=== PATIENT | male | born 1940 | race African-American/Black ===

== ENCOUNTER 2024-04-25 15:03 | Inpatient (IN) | payer MEDICARE, SELFPAY ==
[2024-04-25] VITALS (10 sets, daily range): BP systolic 121–151; BP diastolic 71–100; PULSE 77–95; BMI 19.7; BMI 18.7
[2024-04-25 10:27] LABS: Glucose - Point of Care 145 mg/dl (70-99)
--- NOTE | 2024-04-25 10:35 | CON.NEURO ---
Neuro Assessment/Plan
Assessment
IMPRESSIONS/RECOMMENDATIONS:
Abrupt change in speech with reduced speech following what was described by the patient's family as suggested respiratory change
Differential diagnosis includes seizure, anoxic encephalopathy
Plan
Patient will require further evaluation by means of EEG
Patient will require further evaluation by means of MRI of brain.
Unclear if the patient will require initiation of antiseizure medication this time, symptomatology may be secondary to non-[employer] related causes
Check blood work for potential metabolic causes
Will continue to follow patient.
Consultation
Order
Date of Consultation: 04/25/24
Requesting Provider: ED Physician
Reason for Consult: Change in mental status
Subjective/Objective
Subjective Data
Date of Service: April 25, 2024
Patient himself is unable to provide his own medical history.
Patient reportedly was in his usual state of health until becoming responsive at home after eating breakfast. The patient was described as having irregular respirations and the patient's attempted to revive him by performing CPR. Paramedics,
upon arrival, found the patient to be awake but confused and combative.
Because of the patient becoming less responsive at times although he was combative upon presentation, a stroke alert was initiated. The patient is not known to have additional associated symptoms. There is no known modifying factors at this time.
The patient did not experience either tongue biting or known bowel or bladder incontinence at the time of the incident. Unknown if the patient has had prior episodes which were similar.
Objective Data
Vital Signs
Temp Pulse Resp BP
36.5 C 98 16 151/94
04/25/24 10:26 04/25/24 10:19 04/25/24 10:19 04/25/24 10:19
Patient Allergies
No Known Drug Allergies Allergy (Verified 02/17/14 07:52)
Unknown
CVA Assessment
Onset of Stroke Symptoms
Onset of symptoms known: Yes
Date of onset of symptoms: 04/25/24
Time of onset of symptoms: 09:30
Time pt last seen normal is known: Yes
Date last time pt seen normal: 04/25/24
Time last time pt seen normal: 09:30
NIH Stroke Score
Level of Consciousness: 1 - Arousable
LOC Questions: 0-Answers both correctly
LOC Commands: 1-Performs one correctly
Best Horizontal Gaze: 0-Normal
Visual Linda: 0=Normal, no visual loss
Facial Palsy: 0=Normal, symmetrical
Motor - Right Arm: 0=No drift 10 seconds
Motor - Left Arm: 0=No drift 10 seconds
Motor - Right Le-No drift 5 seconds
Motor - Left Le-No drift 5 seconds
Limb Ataxia: 0-Absent
Sensation: 0-Normal
Best Language: 0-No aphasia
Dysarthria: 0-Normal
Extinction and Inattention: 0-No abnormality
Total Score:: 2
Tenecteplase Contraindications
Inclusion and Exclusion criteria reviewed: Yes
IAT Contraindications: NIHSS < 6
Review of Systems
-
Unable to obtain full review of systems at this time due to: Lethargy
History Source: Patient
All other systems: Reviewed and negative
Neuro: Headache (Central pressure); Negative Dizzy
Physical Exam
-
General: No Apparent Distress and Appears Stated Age
Eyes: OU Absent Papilledema, Round OU, [place] Conjunctivae and No Ptosis
HEENT: Anicteric and Moist Mucous Membranes
Neck: Full Range of Motion
Respiratory: No Dyspnea
Cardiac: No JVD
GI: Non-distended
Skin: Unremarkable
Extremities: No Clubbing, No Cyanosis and No Edema
Psych: Negative Intact Judgement/Insight
Extended Neurological Exam
Mood & Affect: Mood Unremarkable and Affect Unremarkable
Attention Span & Concentration: Awake, Interactive and Moderate Difficulty with 2 Step Request; Negative Alert
Memory: Unremarkable
Tremor: Hand Tremor Absent and Head Tremor Absent
Involuntary Movement: None
Speech: Quality Unremarkable and Quantity Unremarkable
Cranial Nerve II: Left Eye: Pupillary Reactivity Unremarkable, Pupillary Size Unremarkable and Visual Linda Intact
Cranial Nerve II: Right Eye: Pupillary Reactivity Unremarkable, Pupillary Size Unremarkable and Visual Linda Intact
Cranial Nerves III, IV, : Extraocular Movement: Extraocular Movement Full in all Directions
Cranial Nerve VII: Facial Symmetry: Normal Facial Symmetry
Cranial Nerve VIII: Hearing: Unremarkable Hearing to Normal Conversational Volume
Cranial Nerves IX, X: Palate Movement: Palate Elevation Symmetric
Cranial Nerve XI: Shoulder Shrug: Unremarkable
Cranial Nerve XII: Tongue Protusion: Midline
Muscle Strength, Overall: Full Throughout
Muscle Bulk & Tone: Bulk Unremarkable and Tone Unremarkable
Pronator Drift: No Drift in Upper Extremities and No Drift in Lower Extremities
Deep Tendon Reflexes: Unremarkable Throughout
Touch Sensation: Unremarkable
Coordination: Isejhd-taub-gguloh Testing Unremarkable
Babinski Sign: Absent Bilaterally
Data Reviewed
-
CT Head: Report Reviewed and Image Reviewed
Labs: Report Reviewed
Reviewed with: Physician, Nurse and Patient
Old Records: Summarized
Medications
-
Home Medications
�Medication �Instructions �Recorded
ferrous sulfate 325 mg (65 mg 325 mg PO BID #0 tabs 12/29/13
iron) tablet (FeroSul)
ciprofloxacin HCl 500 mg tablet 500 mg PO BID 02/16/14
Thera-M DAILY 02/17/14
Past History
Past History
ED Past Medical History: Other (Urinary incontinence); Negative Renal failure (CKD3)
ED Past Surgical History: None
Social History
Tobacco: Former smoker
Alcohol: Occasional
Drug: None
Personal:
Living: with family
Employment: Employed
Family History
Family History: Other (reviewed and non-contributory)
--- NOTE | 2024-04-25 10:44 | ED.GENMED ---
History of Present Illness
General
Chief Complaint: Fainting/Passed Out
Source: patient and ambulance crew
Time Seen by Provider: 04/25/24 10:42
Travel History
Have you had any contact with someone who has COVID-19?: No
Do you have any symptoms of coronavirus? Fever > 100 degrees, chills, cough, shortness of breath, sore throat, loss of taste or smell, muscle aches, or headache?: No
History of Present Illness
History of Present Illness:
83-year-old gentleman brought to the emergency room by medics after he became unresponsive at home. Medics report the patient was eating breakfast with his when he became unresponsive. She described his respirations as being abnormal. She
evidently performed CPR. When the paramedics arrived they found him to be awake but confused and somewhat combative. Evidently the patient does not take any medications. Patient arrives somewhat confused but answering some questions.
Past History
Past History
ED Past Medical History: Other (Urinary incontinence); Negative Renal failure (CKD3)
Social History
Tobacco: Former smoker
Alcohol: Occasional
Drug: None
Personal:
Living: with family
Employment: Employed
Phy Exam
Physical Exam
Physical Exam:
General: Awake, Alert, Oriented X1. No acute distress.
Vitals: unremarkable
Head: Atraumatic
Eyes: Pupils equal, EOMI
Throat: Airway intact, no exudates, dry mucosa
Neck: Trachea midline
Lungs: Clear and equal b/l
Heart: Regular rate, no murmurs
Abd: Soft, Nontender, No pulsatile mass
Neuro: Confused but cranial nerves seem intact bilaterally, muscle strength equal bilaterally no apparent visual field deficits.
Skin: Warm, dry, no rash
Extremities: pulses equal b/l, no edema
Course
Orders/Labs/Results
Orders:
Orders
04/25/24 10:23
Lorazepam [Ativan] 2 mg .ROUTE .STK-MED ONE
04/25/24 10:33
CT Head W/o Cont STROKE ALERT Stat
Comment:
Reason For Exam: stroke
04/25/24 10:44
Electrocardiogram (*1) Urgent
Reason for Study: Syncope
EKG- Treatment ONCE
04/25/24 10:45
Complete Blood Count/With Diff Urgent
Erythrocyte Sed Rate Urgent
Comment: ADD ON
04/25/24 12:11
C-Reactive Protein Urgent
Comment: ADD ON
Comprehensive Metabolic Panel Urgent
Ferritin Urgent
Comment: ADD ON
Folate Urgent
Comment: ADD ON
Magnesium Urgent
TSH Reflex To Free T4 Urgent
Troponin I Urgent
Vitamin B12 Urgent
Comment: ADD ON
04/25/24 13:55
Add On- LAB Routine
Comments:: Please add to today's labs or draw as routine
Tests Added?: TSH reflex, Ferritin, Folate, Vit. B12, ESR, CRP
04/25/24 14:43
Admit/Transfer Patient As Directed
Co-Sign Provider:
Level of Care: Inpatient admission
Assign to:: Telemetry
Physician / Group: Hospitalist
Diagnosis: Syncope
Reason for Telemetry: Syncope
Date to Stop Telemetry: 04/27/24
Time to Stop Telemetry: 11:00
Reason for Hospitalization: unexplained syncope
Expected length of stay greater than two midnights?: Yes
ELOS- Estimated Length of Stay in days: 2
I certify the patient meets the requirements for IP care: Yes
04/25/24 14:45
Code Status As Directed
Resuscitation Status: Full Code
04/27/24 11:00
DC Protocol for Telemetry ONCE
Abnormal Lab Results
04/25/24 04/25/24 04/25/24
10: 10:45 12:11
RBC 4.10 L 10^6/uL
(4.70-6.10)
Hgb 11.9 L g/dL
(13.0-18.0)
Hct 35.8 L %
(39.0-52.0)
Absolute Lymphs (auto) 1.0 L 10^3/uL
(1.2-3.4)
Neutrophils % 77.9 H %
(42.2-75.2)
Lymphocytes % 17.2 L %
(20.5-51.1)
BUN 27 H mg/dl
(9-20)
POC Glucose 145 H mg/dl
(70-99)
04/25/24 10:45
04/25/24 12:11
Vital Signs
Initial and Last Documented VS:
Initial Vital Signs
Pulse Resp BP
98 16 151/94
04/25/24 10:19 04/25/24 10:19 04/25/24 10:19
Last Documented Vital Signs
Temp Pulse Resp BP Pulse Ox
97.7 F 90 19 149/81 97
04/25/24 10:26 04/25/24 14:30 04/25/24 14:30 04/25/24 14:00 04/25/24 10:59
MDM/Problems Addressed
Differential Diagnosis Includes:
Seizure, syncope, dysrhythmia
MDM/Problems Addressed:
Patient presents after having become unresponsive at home. This was witnessed by his . She evidently started CPR. When x-ray of the found to be combative. Upon arrival here to the emergency room he is confused. Workup started as a stroke
alert. CT shows no acute abnormality. During his stay in the emergency patient has become more calm and seems to be close to baseline. Neurology evaluation performed and they feel this event is very unlikely to have been an ischemic event. Labs
show mild elevated BUN but otherwise really they are unremarkable. No dysrhythmia on the monitor here. Ultimately was able to speak to the patient's and she states that when he collapsed he was stiff with his arms flexed for a period of time.
He did not have rhythmic shaking however. Overall it is difficult to determine if this was a true seizure versus cardiac syncope. Patient will require hospitalization to sort this out
*Radiology
Radiology exam reviewed: radiology read reviewed
*Pulse Oximetry
Patient hypoxic: no
*EKG
Interpreted by ED Provider?: Yes
Interpretation: normal
Heart Rate: 92
Rate: normal
Rhythm: sinus
Interval: normal interval
QRS Pattern: normal QRS
Ischemia: no ischemia
*Change Release Manager Interpretation
Rate: normal
Interpretation: normal
Rhythm: sinus
*Critical Care Note
Total Time (30-74mins, 75-104mins- exclusive of procedures): 35 min
comment:
Critical care statement: A total of 35 minutes of critical care time was provided for this patient. This includes management of unstable vital signs, evaluation of the patient at bedside, reviewing the patient's pertinent medical records, discussion
with consultants, review of old EKGs and review of pertinent medical records. This time with separate from time utilized to perform the aforementioned documented procedures
Patient Management
Social determinants of health affecting care: Living situation
ED Attending Note
-
Portions of this chart may have been created with voice recognition software.� Occasional wrong word or��sound alike� substitutions may have occurred due to the inherent limitations of voice recognition software.
Discharge Plan
Departure
Patient Disposition: Admit
Date of Disposition: 04/25/24
Time of Disposition: 13:24
Presentation/result/management discussed w/ accepting MD/DO: Hospitalist
Condition: Fair
Discharge Problem:
Syncope, Altered mental status
Prescriptions:
No Action
No Current Medications
0
Referrals:
UNKNOWN - PT NOT,INTERVIEWE [Family Provider] -
Interventions
Interventions:
*Risk Screen - Suicide Last Done: 04/25/24 10:19
*General Assessment Last Done: 04/25/24 10:19
*Neglect/Abuse Screening Last Done: 04/25/24 10:19
ED- Cardiac Assessment Last Done: 04/25/24 10:59
ED- Neurological Assessment Last Done: 04/25/24 10:59
Discharge Date and Time
Print Language: IRISH
[2024-04-25 10:56] LABS: % Basophils 0.4 % (0-2); % Eosinophils 1.1 % (0-6); % Immature Granulocytes 0.2 % (0-0.5); % Lymphocytes 17.2 % (20.5-51.1); % Monocytes 3.2 % (1.7-9.3); % Neutrophils 77.9 % (42.2-75.2); Absolute Eosinophils 0.1 10^3/uL (0-0.7); Absolute Monocytes 0.2 10^3/uL (0.1-0.6); Absolute Neutrophils 4.4 10^3/uL (1.4-6.5); Hematocrit 35.8 % (39.0-52.0); Hemoglobin 11.9 g/dL (13.0-18.0); Mean Corp Hgb Conc. 33.2 g/dL (33.0-37.0); Mean Corpuscular Volume 87.3 fL (80.0-94.0); Mean Platelet Volume 10.3 fL (7.4-10.4); Nucleated Red Blood Cells % 0 % (-); Platelet Count 148 10^3/uL (130-400); Red Cell Dist. Width 14.2 % (11.5-14.5); White Blood Cell Count 5.6 10^3/uL (4.8-10.8)
[2024-04-25 12:41] LABS: ALT (SGPT) 14 U/L (0-50); AST (SGOT) 23 U/L (17-59); Albumin 3.6 g/dl (3.5-5.0); Alkaline Phosphatase 74 U/L (38-126); Blood Urea Nitrogen 27 mg/dl (9-20); Calcium 9.1 mg/dl (8.4-10.2); Carbon Dioxide 27 mmol/L (22-30); Chloride 104 mmol/L (98-107); Estimated Creatinine Clearance 48 ml/min; Glucose 77 mg/dl (70-99); Potassium 4.1 mmol/L (3.5-5.1); Sodium 136 mmol/L (135-145); Total Bilirubin 0.5 mg/dl (0.2-1.3); Total Protein 7.2 g/dl (6.3-8.2); eGFR > 60.00
[2024-04-25 12:52] LABS: Troponin I < 0.012 ng/ml
[2024-04-25 13:17] LABS: TSH Reflex To Free T4 1.85 uIU/ml (0.47-4.68)
--- NOTE | 2024-04-25 14:23 | HPS.HSE ---
Addendum entered and electronically signed by Diego Sanchez MD 04/26/24 14:16:
I saw and evaluated the patient I reviewed the note by Gladis and agree to find the following comments:
83-year-old male with no chronic medical history presented to hospital after spell of abnormal behavior with loss of consciousness seen by his . Patient can recall an unusual sensation in the chest and abdomen and then waking up being
surrounded by medical personnel, he did not have any discomfort dyspnea or chest pain with this. His describes a yelling sound and then seeing him seeming to fall to the ground but also trying to catch himself seem to have a flexion type
movement of the arms and wrists that lasted a minute or 2, he did not have tongue bite or loss of urinary function, afterwards he did seem to be confused but was able to talk and that is what was going on.
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
past, no history of any brain injury or stroke or neurologic problems to his knowledge.
Patient given lorazepam in the ER due to agitation.
Some paroxysmal SVT has been seen here on telemetry.
Echocardiogram with no significant abnormality
EEG is normal
Brain MRI no significant abnormalities there is moderate white matter vascular ischemic disease no acute infarct or masses
Assessment: Loss of consciousness episode, not clear to me that this was seizure but it is possible. Could also represent a syncope with some degree of convulsive activity afterwards which is common. Patient does not have any history or findings
on testing that support high likelihood of future seizure events. He understands that if a second similar event were to occur then this would point towards epilepsy which would necessitate chronic antiseizure medication.
Recommendations
-Would need follow-up in the outpatient neurology setting and possibly repeat EEG's later on
-Continue monitoring on cardiac telemetry
-Encourage daily blood pressure checks in the morning
-Patient does not want to pursue any antiseizure medication at this time which I feel is reasonable given his testing has not supported epilepsy at this time, if further similar events occur then need to readdress antiseizure medication
-At this time not going to recommend restriction from driving given testing has not supported epilepsy and description of the event is equivocal between seizure and syncope
Original Note:
Family Physician
-
Family Physician: INTERVIEWE UNKNOWN - PT NOT
Chief Complaint
-
Syncopal episode
History of Present Illness
This an 83-year-old male with denies any significant past medical history presenting to the emergency department via EMS after a syncopal episode at home.
Patient was apparently found collapsed at home. . She started CPR. Medics arrived and patient was found awake confused and combative. When able to provide some history. He reports being in usual state of health up until yesterday. He
stated been noted to affect him as he noted decrease in energy level over the last months. Today in the right getting up in usual state of health. He did not remember hearing voices and seeing people around him but not able to process what was
going on. The next any was an ambulance and was being taken to the hospital. Prior to this episode patient denied feeling dizzy or lightheaded. He denied any palpitations. He reports mild shortness chest pain the last seconds and improves with
deep inspiration. Patient denies any recent episodes of melena or hematochezia. He denies any diarrhea. He denies any significant changes in p.o. intake. He denies starting any new medications. He denies any prior CAD. He states that he
usually exercises regularly but the last time he had significant excess activity was about 4 months ago. He denies orthopnea or PND. He denies any cough fevers or chills. He denies alcohol. He denies any drug use. He is only tablets cod liver
oil and vitamin D.
On arrival in the emergency department the patient was afebrile, hemodynamically stable to pressure of 150/90, pulse of 98 and oxygen saturation 97% on room air. ECG showed normal sinus rhythm without any acute ST or T wave changes. QTc was within
normal range. Head CT shows no acute intracranial process. His CBC was clearly normal. Chemistries were also normal. Troponin was in normal range at 0.012. LFTs were normal. TSH was normal. UA is pending
Medical History
Past Medical History
Past Medical History: Reports None
Past Surgical History: Reports None
Social History
Tobacco: Former Smoker
Alcohol: Occasional
Drug: None
Personal:
Living: With Family
Employment: Retired
Family History
Family History: Not pertinent
Allergies / Home Medications
Allergies reflects when Allergies were last updated in [facility].
Home Medications with original date entered in [facility]
Allergy/Medication List:
Allergies
Allergy/AdvReac Type Severity Reaction Status Date / Time
No Known Drug Allergies Allergy Unknown Verified 02/17/14 07:52
Home Medications
No Meds [No Current Medications] 04/25/24
Review of Systems
-
History Source: Patient
Constitutional: Reports No Symptoms
EENT: Reports No Symptoms
Respiratory: Reports No Symptoms
Cardiac: Reports No Symptoms
Abdomen/GI: Reports No Symptoms
: Reports No Symptoms
Musculoskeletal: Reports No Symptoms
Skin: Reports No Symptoms
Neurological: Reports No Symptoms
Endocrine: Reports No Symptoms
Hematologic/Lymphatic: Reports No Symptoms
Psych: Reports No Symptoms
Physical Exam
Vital Signs
Vital Signs
Temp Pulse Resp BP Pulse Ox
97.7 F 98 16 151/94 97
04/25/24 10:26 04/25/24 10:19 04/25/24 10:19 04/25/24 10:19 04/25/24 10:59
Physical Exam
General: No Apparent Distress
HEENT: NormoCephalic, Anicteric, Moist mucous membranes and PERRLA
Respiratory: Clear
Cardiac: S1/S2 and Regular Rhythm
Breast: Deferred by me
GI: Soft, Non Tender, Non Distended and Normal Bowel Sounds
Rectal: Deferred by Provider
Genito-urinary: Deferred by me
Musculoskeletal: No Clubbing, No Cyanosis, Edema, Left Lower Extremity (trace ) and Edema, Right Lower Extremity (trace)
Skin: Warm
Neuro: AO x 3, No Motor Deficits, Nonfocal/grossly intact, Cranial Nerves Intact and No Sensory Deficits
Hematologic/Lymphatic: No Lymphadenopathy
Psych: Calm
Laboratory Results
-
04/25/24 10:45
04/25/24 12:11
Laboratory Results
Total Bilirubin 0.5 mg/dl (0.2-1.3) 04/25/24 12:11
AST 23 U/L (17-59) 04/25/24 12:11
ALT 14 U/L (0-50) 04/25/24 12:11
Alkaline Phosphatase 74 U/L (38-126) 04/25/24 12:11
Troponin I < 0.012 ng/ml 04/25/24 12:11
Data Reviewed
-
CT Scan: Report Reviewed by me
Medical Tests (Nuc Med, Echo, EKG etc): Image Personally Visualized and interpreted
Lab Data: Labs Reviewed by me
Old Records: Reviewed
Impression/Plan
-
IMPRESSION:
83 y.o with syncopal episode of uncertain etiology. Per family there was a sudden collapse without evidence of antecedent seizures. He arose combative but no loss of continence, tongue biting or post-ictal depression. He is currently at baseline,
A&Ox3, purposeful and has incite. Reports decreasing energy that he misattributes to presence of grandson but could reflect underlying cardiac anomaly. Current w/u is so far remarkably negative wuit normal cbc, chem, trop, ecg, lft, & CT head.
Probably was unresponsive but unlikely there was a cardiac arrest.
PLAN:
1. Syncopal episode - Unclear but cardiac, vs vasovagal vs stroke or seizure. Will admit to rule out cardiac etiology
- admit to telemetry and monitor x 24 hours for abnormal rhythm
- cycle cardiac enzymes q 6 x 3
- echo in am
- orthostatic vs
- check u/a, b12, rpr
- check d-dimer.
2. Neuro - Possibly seizure but unclear evidence for. NIHSS = [address]
- mri brain
- eeg per neurology consult
- neurochecks q 6 hours for now
- lipid panel and a1c.
DVT PPX - lovenox sq
Full Code
[2024-04-25 14:51] LABS: C-Reactive Protein < 5.00 mg/L (0.0-10.00)
[2024-04-25 14:54] LABS: Erythrocyte Sed Rate 18 mm/hour (0-20)
[2024-04-25 16:05] LABS: Folate 16.9 ng/ml (2.76-20)
[2024-04-25 16:44] LABS: Vitamin B12 494 pg/ml (239-931)
--- NOTE | 2024-04-25 17:16 | PTCARENOTE ---
Received pt from ER via stretcher, accompanied by ER staff. Pt AAO x3, JENNINGS well; transferred to bed with assist x1- sl unsteady w/ OOB activity, denies weakness/dizziness. NIHSS 0. Pt with very poor vision. Fall prec initiated. Placed on
telemetry:NSR with PVC's. On room air- pulseox 100%, no SOB noted. Abd soft,sl rounded, non-tender, to start reg diet. Pt DTV; urinal at bedside., Pt aware of need for urine sample. Afebrile, warm and dry; dry/flaking skin on lower legs.
Resting in bed at present, no c/o. Will continue to monitor.
[2024-04-25 17:39] LABS: Troponin I 0.018 ng/ml
[2024-04-25 20:26] LABS: Urine Albumin Negative (Neg - Trace); Urine Bilirubin Negative (Negative); Urine Character Clear (Clear); Urine Color Yellow; Urine Glucose Negative (Negative); Urine Ketone 1+ (Negative); Urine Leukocyte Negative (Negative); Urine Nitrite Negative (Negative); Urine Occult Blood Negative (Negative); Urine Urobilinogen Negative (Neg - 1+)
[2024-04-26 03:02] VITALS: BP 132/78
[2024-04-26 06:31] LABS: Hematocrit 36.7 % (39.0-52.0); Hemoglobin 11.9 g/dL (13.0-18.0); Mean Corp Hgb Conc. 32.4 g/dL (33.0-37.0); Mean Corpuscular Hgb 28.4 pg (27.0-31.0); Mean Corpuscular Volume 87.6 fL (80.0-94.0); Mean Platelet Volume 10.1 fL (7.4-10.4); Platelet Count 154 10^3/uL (130-400); Red Blood Cell Count 4.19 10^6/uL (4.70-6.10); Red Cell Dist. Width 13.9 % (11.5-14.5); White Blood Cell Count 4.6 10^3/uL (4.8-10.8)
[2024-04-26 06:55] LABS: NT-proBNP 1240 pg/ml
[2024-04-26 06:59] LABS: Blood Urea Nitrogen 23 mg/dl (9-20); Calcium 8.9 mg/dl (8.4-10.2); Carbon Dioxide 27 mmol/L (22-30); Chloride 104 mmol/L (98-107); Estimated Creatinine Clearance 45 ml/min; Glucose 87 mg/dl (70-99); HDL Cholesterol 77 mg/dl; LDL Cholesterol, Calculated 99 mg/dl; Magnesium 1.9 mg/dl (1.6-2.3); Potassium 3.9 mmol/L (3.5-5.1); Sodium 137 mmol/L (135-145); Total Cholesterol 184 mg/dl (50-199); Triglyceride 44 mg/dl (10-149); Very Low Density Lipoprotein 8 mg/dl (0-30); eGFR > 60.00
[2024-04-26 07:00] VITALS: BP 133/80
--- NOTE | 2024-04-26 08:08 | W.PN.NEURO.1 ---
Today's Communication / Plan
-
.
Neuro Assessment/Plan
Assessment
IMPRESSIONS/RECOMMENDATIONS:
Abrupt change in speech with reduced speech following what was described by the patient's family as suggested respiratory change and loss of consciousness with upper extremity stiffening.
Differential diagnosis includes convulsive syncope, orthostasis, seizure, anoxic encephalopathy.
EEG is unremarkable.
MRI brain is negative for any acute abnormalities.
Paroxysmal SVT noted on telemetry monitoring.
Plan
-Description of event not entirely supportive of seizure. Patient given the option to start antiseizure medication at this time, he declines. If similar event recurs, would encourage initiating an antiseizure medication.
-Obtain repeat EEG as an outpatient.
-Cardiology evaluation.
-Neurological checks per unit guidelines.
-Follow orthostatic vital signs.
-Goal normotension.
-DVT prophylaxis.
-Patient needs to follow-up with Neurology as an outpatient, may see the TOOLING ENGINEERING TECH or one of the physicians.
Subjective/Objective
Subjective Data
Date of Service: April 26, 2024
No acute events overnight. Patient reports feeling at his baseline today. He denies any headache, dizziness, vision changes, speech/swallow difficulty, numbness, weakness, nausea, chest pain, palpitations, and shortness of breath.
Objective Data
Vital Signs
Temp Pulse Resp BP Pulse Ox
97.9 F 83 16 133/80 100
04/26/24 07:00 04/26/24 07:00 04/26/24 07:00 04/26/24 07:00 04/26/24 07:00
Lab Results
04/26/24 05:34
04/26/24 05:34
Sodium 137 mmol/L (135-145) 04/26/24 05:34
Potassium 3.9 mmol/L (3.5-5.1) 04/26/24 05:34
BUN 23 mg/dl (9-20) H 04/26/24 05:34
Glucose 87 mg/dl (70-99) 04/26/24 05:34
Calcium 8.9 mg/dl (8.4-10.2) 04/26/24 05:34
Hdk-V-Ehpsghskbfo Pept 1240 pg/ml 04/26/24 05:34
LDL Cholesterol, Calc 99 mg/dl 04/26/24 05:34
Vitamin B12 494 pg/ml (239-931) 04/25/24 12:11
Patient Allergies
No Known Drug Allergies Allergy (Verified 04/25/24 16:39)
Unknown
Review of Systems
-
History Source: Patient
EENT: Negative Blurry Vision, Decreased Vision or Swallowing Difficulty
Respiratory: Negative Cough or Trouble Breathing
Cardiac: Negative Chest Pain or Palpitations
Abdomen/GI: Negative Nausea
Neuro: Negative Dizzy, Headache, Weakness, Numbness, Ataxia, Tremors or Speech Problem
Physical Exam
-
General: Well Developed, Well Nourished and No Apparent Distress
Eyes: No Ptosis and PERRLA
HEENT: Normocephalic and Atraumatic
Neck: Full Range of Motion
Respiratory: No Dyspnea
GI: Non-distended
Extremities: No Clubbing, No Cyanosis and No Edema
Psych: Unremarkable
Extended Neurological Exam
Mood & Affect: Mood Unremarkable and Affect Unremarkable
Attention Span & Concentration: Awake, Alert, Interactive and No Difficulty with 2 Step Request
Memory: Unremarkable (AAOx3. Able to name recent events, several garcia in the world. 3 word recall- 3/3 with hints.) and Able to Recall
Tremor: Hand Tremor Absent and Head Tremor Absent
Involuntary Movement: None
Speech: Quality Unremarkable, Quantity Unremarkable and Rate of Production Unremarkable
Cranial Nerve II: Left Eye: Pupillary Reactivity Unremarkable, Pupillary Size Unremarkable and Visual Linda Intact
Cranial Nerve II: Right Eye: Pupillary Reactivity Unremarkable, Pupillary Size Unremarkable and Visual Linda Intact
Cranial Nerves III, IV, : Extraocular Movement: Extraocular Movement Full in all Directions
Cranial Nerve VII: Facial Symmetry: Normal Facial Symmetry
Cranial Nerve VIII: Hearing: Unremarkable Hearing to Normal Conversational Volume
Cranial Nerves IX, X: Palate Movement: Palate Elevation Symmetric
Cranial Nerve XI: Shoulder Shrug: Unremarkable
Cranial Nerve XII: Tongue Protusion: Midline
Muscle Strength, Overall: Full Throughout
Muscle Bulk & Tone: Bulk Unremarkable and Tone Unremarkable
Pronator Drift: No Drift in Upper Extremities and No Drift in Lower Extremities
Touch Sensation: Unremarkable
Coordination: Vpyybg-sdke-irxaaj Testing Unremarkable
Babinski Sign: Absent Bilaterally
Data Reviewed
-
CT Head: Report Reviewed and Image Reviewed
MRI Head: Report Reviewed and Image Reviewed
EEG: Report Reviewed
Orthostatic Testing: Report Reviewed
Labs: Report Reviewed
Reviewed with: Physician, Patient and Family
Medications
-
Active Medications
Generic Name Dose Route Start Last Admin
Trade Name Freq PRN Reason Stop Dose Admin
Acetaminophen 650 mg 04/25/24 16:23
Acetaminophen 325 Mg Tablet PO 05/23/24 16:22
Q4HPRN PRN
RICHARD, mild pain, or temp >100.4F
Enoxaparin Sodium 40 mg 04/25/24 18:00 04/25/24 17:38
Enoxaparin Sodium 40 Mg/0.4 Ml Syringe SC 05/23/24 17:59 Not Given
QPM DIXON
Magnesium Hydroxide 30 ml 04/25/24 16:23
Milk Of Magnesia 30 Ml Cup PO 05/23/24 16:22
HSPRN PRN
constipation
Home Medications
�Medication �Instructions �Recorded
No Meds [No Current Medications] 04/25/24
--- NOTE | 2024-04-26 09:03 | EEG.RPT ---
Electroencephalogram Report
Recording
Date of EE04/26/24
Type of EEG: Routine
Length of EEG recordin min
Done with Video Recording: Yes
Patient Status: Inpatient
Recording Conditions: Awake and Drowsy
Hyperventilation Performed: No
Photic Stimulation Performed: Yes
Report
LESS THAN 1 HOUR EEG REPORT
LESS THAN 1 HOUR EEG INTERPRETATION:
Likely unremarkable EEG for age
CLINICAL CORRELATION:
Although normative values not been established for a person of this advanced age, the patient�s symmetry of the background suggests that this study was unremarkable.
A normal EEG does not rule out a diagnosis of epilepsy. If clinical suspicion for seizure persists, a prolonged recording may be warranted.
Clinical correlation is advised.
METHODS:
A 21 channel digitized electroencephalogram (EEG) was performed using the 10/20 international system of electrode placement and one-lead of ECG recorded. The [employer] quantitative analysis system was utilized.
ELECTROENCEPHALOGRAPHER IMPRESSION(S):
Quality of study
Good
Background
There was an low amplitude anterior-posterior voltage gradient of alpha frequency.
With eye opening the background activity changed to a low voltage mixture of frequencies.
There were no significant asymmetries of background activity noted.
Sleep
Drowsiness present
Photic Stimulation
No driving
ECG
Normal sinus rhythm
[2024-04-26 09:54] LABS: Glycohemoglobin (HgbA1c) 5.8 % (4.0-5.6)
[2024-04-26 11:00] VITALS: BP 116/75; BP 122/77; BP 123/74; PULSE 68; PULSE 73; PULSE 82
--- NOTE | 2024-04-26 11:44 | W.PN.HOSP.TC ---
Today's Communication/Plan
-
cardiology consult
Assessment / Plan
Assessment / Plan
83 y.o with syncopal episode of uncertain etiology. Per family there was a sudden collapse without evidence of antecedent seizures. He arose combative but no loss of continence, tongue biting or post-ictal depression. He is currently at baseline,
A&Ox3, purposeful and has incite. Reports decreasing energy that he misattributes to presence of grandson but could reflect underlying cardiac anomaly. Current w/u is so far remarkably negative wuit normal cbc, chem, trop, ecg, lft, & CT head.
Probably was unresponsive but unlikely there was a cardiac arrest.
PLAN:
1. Syncopal episode - Unclear but cardiac, vs vasovagal vs stroke or seizure. Will admit to rule out cardiac etiology
SVT
-appreciate neurology eval, less likely seizure
-brief episodes SVT seen on telemetry, will consult cardiology
-continue to trend Troponin
-doubt orthostatic as occurred when sitting, no GI upset
-no chest pain or shortness of breath
Neuro - Possibly seizure but unclear evidence for. NIHSS = [address]
- mri brain - F/U results
- eeg
- F/U formal neurology note
- neurochecks q 6 hours for now
- lipid panel and a1c.
DVT PPX - lovenox sq
Full Code
51 minutes spent on patient evaluation, medical decision making and coordination of care
Anticipated Discharge: 24 - 48 hours
Subjective/Interval History
-
Date of Service: April 26, 2024
states syncope while eating cereal
similar episodes near syncope over past 20 years when sitting or standing
Objective Data
-
Labs:
Laboratory Results
04/26/24
05:34
WBC 4.6 L
Hgb 11.9 L
Hct 36.7 L
Plt Count 154
Sodium 137
Potassium 3.9
Chloride 104
Carbon Dioxide 27
BUN 23 H
Creatinine 1.1
Glucose 87
Calcium 8.9
Vital Signs:
Vital Signs
Temp Pulse Resp BP Pulse Ox
98.0 F 68 14 123/74 98
04/26/24 11:00 04/26/24 11:00 04/26/24 11:00 04/26/24 11:00 04/26/24 11:00
I&O
04/25/24 04/26/24 04/27/24
06:59 06:59 06:59
Intake Total 480 / 480
Output Total 400 / 400
Balance 80 / 80
Review of Systems
-
History Source: Patient
All other systems: Reviewed and negative
Physical Exam
-
General: No Apparent Distress and Conversant
HEENT: PERRLA
Respiratory: Clear to Auscultation; Negative Wheezes
Cardiac: Regular Rhythm and S1/S2
GI: Soft and Nontender
Musculoskeletal: No Edema
Neuro: AO x 3
Psych: Calm
Data Reviewed
-
Diagnostic Radiology: Report Reviewed by me
Labs: Labs Reviewed by me
[2024-04-26 13:04] LABS: Troponin I < 0.012 ng/ml
--- NOTE | 2024-04-26 13:19 | CON.CAR ---
Addendum entered and electronically signed by Mendez Fabian MD 04/26/24 18:46:
I saw and examined the patient.
The ROLLING MILL OPERATOR HELPER's note was reviewed and I agree with the note.
Comment: 83-year-old gentleman who does not seek medical care presented after his called 911. He was sitting eating cereal and lost consciousness. He denies any immediate prodrome. He states an hour before he passed out he saw some blinking
lights that recurred 30 minutes later and then did not occur right before his syncopal episode. At times he does get feelings of dizziness. While inpatient, he had some episodes of seeing the blinking lights and brief runs of PSVT were seen on the
monitor. However, he did have multiple episodes of PSVT that did not correlate to any symptoms. He is very active without ever having an issue with activity. On exam, he is thin with a mass on the back of his left neck, regular rate and rhythm
normal S1-S2 no murmurs or gallops were appreciated abdomen was soft, lungs were clear to auscultation bilaterally. Telemetry already mentioned above. EKG showed normal sinus rhythm with nonspecific IVCD and PVCs. Echocardiogram showed normal
LVEF with mild aortic regurgitation. I discussed that I was quite concerned that his syncopal episodes seem to occur in the setting of no prodrome. This could possibly suggest an arrhythmic etiology. I offered an EP study tomorrow. He is not
interested in invasive tests. I also offered a long-term outpatient monitor to see if he had a recurrent episode and we could correlate to arrhythmia. He is not interested in any monitor I can order. He tells me he is going to 'make his own
long-term EKG outpatient monitor'. 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 I explained that this would not be reliable. He disagrees. I explained that the safest approach would be first EP study and next in
the least a long-term monitor arranged through a device company that is verified and tested. He again disagrees. He assures me that he will call me should he have any further need for my services. I offered him follow-up, but again he wishes to
follow-up as needed. I do not think it is safe for him to drive until he has gone 6 months without a syncopal episode.
As he is not interested in my opinion, I will sign off. I did discuss our visit with Dr. Beach.
Original Note:
Consultation
Consultation Request
Date/Time Consultation Requested: 04/26/24 1234
Date/Time Consultation Performed: 04/26/24 1320
Requesting Provider: Dr. Beach
Performing Provider: Emily PORRAS for Dr. Fabian
Reason for Consultation: pSVT, loss of conciousness
Medical History
-
Chief Complaint: loss of conciousness
History of Present Illness:
83 y/o male who is here for evaluation after he was noted to be sitting eating cereal and lost consciousness. Per notes, his did CPR. Patient remembers eating his cereal, then waking up to EMS surrounding him. He does not recall feeling dizzy,
but did remember a strange feeling twice within the hour prior, that lasted seconds (like a wave of light going over his body- he finds it hard to explain). He is seen to have episodes of pSVT on the windows admin. He has had episodes of passing
out. He did have syncope in the distant past, which it sounds like was attributed to orthostasis. He hasn't had anything like that for years, but on day after eating two cheesesteaks while sitting, he had several minutes of feeling
light-headed, but he did not pass out. He looks well at the time of my assessment. He is active and does strength-training each day without issue. He denies any CP, SOB, or palpitations. Episodes of brief SVT noted on the windows admin, but he is
not symptomatic.
Past Medical History
Past Medical History: None
Social History
Tobacco: Other (occasional cigar)
Alcohol: Occasional (3 glasses wine per year)
Personal:
Living: With Family
Family History
Family History: Reviewed & Not Pertinent (denies SCD, denies family heart history)
Allergies / Home Medications
Allergy/AdvReac Type Severity Reaction Status Date / Time
No Known Drug Allergies Allergy Unknown Verified 04/25/24 16:39
�Medication �Instructions �Recorded �Confirmed �Type
No Meds [No Current Medications] 04/25/24 04/25/24 History
Review of Systems
-
History Source: Patient
All other systems: Negative unless noted (as above)
Neurological: Other (loss of consciousness)
Physical Exam
Vital Signs
Temp Pulse Resp BP Pulse Ox
98.0 F 68 14 123/74 98
04/26/24 11:00 04/26/24 11:00 04/26/24 11:00 04/26/24 11:00 04/26/24 11:00
Lab Results
04/26/24 05:34
04/26/24 05:34
Troponin I < 0.012 ng/ml 04/26/24 12:25
Dyz-U-Fyjcelvctiz Pept 1240 pg/ml 04/26/24 05:34
Physical Exam
General: Well Developed, Well Nourished and No Apparent Distress
HEENT: Normocephalic and Anicteric
Respiratory: Clear and Non Labored Respirations
Cardiac: Regular Rhythm
Musculoskeletal: No Edema
Skin: Warm and Dry
Neuro: AO x 3
Psych: Calm
Impression / Plan
-
Loss of consciousness:
-etiology unclear
-neuro following
-echo shows normal EF, no significant
-follow telemetry
pSVT:
-follow tele
-asymptomatic and unlikely to have caused syncope
-wouldn't add meds at this time since he doesn't feel it and unclear cause of syncope
Data Reviewed
-
EKG: Tracing Personally Visualized and interpreted (SR with PVC [address] Scan: Report Reviewed by me (Head CT: No CT evidence for acute intracranial hemorrhage or transcortical infarct.)
Medical Tests (Nuc Med, Echo etc): Report Reviewed by me (Echo 04/26/24: Technically difficult, no apical windows Normal biventricular size and systolic function without regional wall motion abnormality. Mild aortic regurgitation.)
Labs: Labs Reviewed by me
[2024-04-26 14:02] VITALS: BMI 18.7
[2024-04-26 14:36] VITALS: BP 125/79
--- NOTE | 2024-04-26 16:06 | CM ---
Alert awake oriented patient who lives with his Marlin who lives in a 2 story home with 1 step to enter and bed and bathroom on first floor. He is independent in all activities of daily living.No adaptive devices.
[facility] hx /No SNF hx
Pharmacy on no medicines
PCP none he will call back of [place] and see which MD taking new patients
PLAN Home no anticipated needs
[2024-04-26 19:10] VITALS: BP 127/76
[2024-04-26 23:45] VITALS: BP 137/80
[2024-04-27 03:21] VITALS: BP 137/84
--- NOTE | 2024-04-27 05:00 | PTCARENOTE ---
Patient having brief periods of SVT on telemetry overnight, HR up to 160-170s at times. Patient otherwise with a HR of 60-70s in NSR with PVCs. Patient resting comfortably and offers no complaints. DECKHAND ENGINEER made aware, no further orders.
[2024-04-27 05:37] LABS: Hematocrit 35.5 % (39.0-52.0); Hemoglobin 11.9 g/dL (13.0-18.0); Mean Corp Hgb Conc. 33.5 g/dL (33.0-37.0); Mean Corpuscular Hgb 28.8 pg (27.0-31.0); Mean Platelet Volume 10.1 fL (7.4-10.4); Platelet Count 152 10^3/uL (130-400); Red Blood Cell Count 4.13 10^6/uL (4.70-6.10); Red Cell Dist. Width 13.9 % (11.5-14.5); White Blood Cell Count 3.7 10^3/uL (4.8-10.8)
[2024-04-27 06:07] LABS: Blood Urea Nitrogen 28 mg/dl (9-20); Calcium 8.9 mg/dl (8.4-10.2); Carbon Dioxide 25 mmol/L (22-30); Chloride 106 mmol/L (98-107); Estimated Creatinine Clearance 42 ml/min; Glucose 85 mg/dl (70-99); Magnesium 1.9 mg/dl (1.6-2.3); Potassium 4.1 mmol/L (3.5-5.1); Sodium 137 mmol/L (135-145); eGFR > 60.00
[2024-04-27 07:00] VITALS: BP 125/82; BP 132/73; BP 144/85; PULSE 75; PULSE 76; PULSE 87
--- NOTE | 2024-04-27 09:18 | PN.CDI ---
CDI
- -
CDI:
Physician Documentation Request
Admit Date: 04/25/24 15:03
Dear Doctor Yong,
Please review the following and provide your response in the progress notes.
Clinical Indicators:
Height: 5'11
Weight: 134lbs
BMI: 18.7
04/26 Cardiology 'On exam, he is thin'
If possible, please provide an associated diagnosis related to the abnormal BMI, such as:
Underweight
Cachexia
BMI is not significant
Other
Use of terms such as suspected, likely, concern for, or probable (associated with a specific diagnosis that is being evaluated, monitored, or treated as if it exists) are acceptable and can be coded in the inpatient setting, when documented at the
time of discharge.
Thank you,
Rhonda Richter RN
CDI Specialist
Please use your independent medical judgment in providing your response.
--- NOTE | 2024-04-27 09:41 | W.PN.HOSP.TC ---
Addendum entered and electronically signed by Azul Beach MD 04/27/24 12:51:
Underweight
-appreciate dietary
Original Note:
Today's Communication/Plan
-
OK for DC today after seen by PT and OT
Assessment / Plan
Assessment / Plan
83 y.o with syncopal episode of uncertain etiology. Per family there was a sudden collapse without evidence of antecedent seizures. He arose combative but no loss of continence, tongue biting or post-ictal depression. He is currently at baseline,
A&Ox3, purposeful and has incite. Reports decreasing energy that he misattributes to presence of grandson but could reflect underlying cardiac anomaly. Current w/u is so far remarkably negative wuit normal cbc, chem, trop, ecg, lft, & CT head.
Probably was unresponsive but unlikely there was a cardiac arrest.
MRI BRAIN
IMPRESSION:
1. No MRI evidence for acute infarct or intracranial hemorrhage.
2. Mild to moderate bilateral frontal and parietal lobe volume loss.
3. Mild white matter leukoaraiosis in the frontal and parietal lobes.
4. Mild paranasal sinus mucosal disease.
PLAN:
1. Syncopal episode
SVT on telemetry
-no prodrome
-appreciate neurology eval, less likely seizure but can't be sure; patient does not wish to start AED
-brief episodes SVT seen on telemetry, PVC's seen. appreciate cardiology consult. Patient refuses EP study
-patient is given information on risk of avoiding EP study with possibility of fall and head injury. He states he does not drive. Information will be given to [employer]
DVT PPX - lovenox sq
Full Code
Anticipated Discharge: Today
Subjective/Interval History
-
Date of Service: April 27, 2024
feeling well this morning
no new episodes of passing out
Objective Data
-
Labs:
Laboratory Results
04/27/24
04:23
WBC 3.7 L
Hgb 11.9 L
Hct 35.5 L
Plt Count 152
Sodium 137
Potassium 4.1
Chloride 106
Carbon Dioxide 25
BUN 28 H
Creatinine 1.2
Glucose 85
Calcium 8.9
Vital Signs:
Vital Signs
Temp Pulse Resp BP Pulse Ox
97.5 F 76 18 144/85 99
04/27/24 07:00 04/27/24 07:00 04/27/24 07:00 04/27/24 07:00 04/27/24 07:58
I&O
04/26/24 04/27/24 04/28/24
06:59 06:59 06:59
Intake Total 480 / 480 540 / 540
Output Total 400 / 400 525 / 525
Balance 80 / 80 15 / 15
Review of Systems
-
History Source: Patient
All other systems: Reviewed and negative
Physical Exam
-
General: No Apparent Distress and Conversant
HEENT: PERRLA
Respiratory: Clear to Auscultation; Negative Wheezes
Cardiac: Regular Rhythm and S1/S2
GI: Soft and Nontender
Musculoskeletal: No Edema
Neuro: AO x 3
Psych: Calm
Data Reviewed
-
Diagnostic Radiology: Report Reviewed by me
Labs: Labs Reviewed by me
--- NOTE | 2024-04-27 09:41 | CM ---
Addendum entered by Lachelle Carter RN 04/27/24 10:10:
MD entered order for discharge.
spoke with patient he declined VN .
He said his daughter will [place] [employer] [place] to [place] him home.
PLAN Home no needs
Original Note:
Cardiology involved.
Requested PT OT order from MD.
Pt does not have a Pharmacy because he takes no meds.
He does not have PCP.He said he would call number on Medicare card to locate a PCP.
He declined need for [place] at [place].
PLAN Home no anticipated needs
--- NOTE | 2024-04-27 09:59 | W.DS.TRANS ---
DC Summary - Banquet Line Cook
-
Discharge Instructions:
Discharge Diagnosis/Procedures syncope; concern for arrhythmia
Diet Regular
Activity As tolerated
Driving Restrictions No driving
Bathing Restrictions None
Other Services VN,PT,OT
Instructions:
Stand-Alone Forms:
Changes to Home Medications: No
Discharge Medications:
DC Medications w/original date entered in [facility]
No Meds [No Current Medications] 04/25/24
Home Medication Changes
Pending Results: No
--- NOTE | 2024-04-27 10:08 | PTOTSP ---
The patient is independent with ambulation and elevations, no mobility deficits noted. No PT needs identified at this time, will sign off. Discussed with Hospitalist.
[2024-04-27 11:00] VITALS: BP 107/71
[2024-04-27 12:39] LABS: Syphilis/T. pallidum Ab Reflex Negative (Negative)
--- NOTE | 2024-04-27 12:52 | W.DCSUMMARY ---
Discharge Summary
Discharge Data
Date of Admission: 04/25/24
Date of Discharge: 04/27/24
-
Pending Results: No
Hospital Course
Discharging Physician : Dr. Azul Beach
Disposition : Home
Primary care physician : Dr. Azul Beach
Principal Discharge diagnosis : Syncope with possible causes including arrhythmia versus seizure
Hospital Course :
Mr. Frandy Quintero is a 83 yo man without significant past medical history presents to the ER with syncope followed by confusion. He was agitated in the ER and given ativan. ED work up including an EEG which had no significant abnormality and MRI
without acute abnormalities, moderate white matter vascular ischemic disease without acute infarct or mass. Overnight on telemetry patient shown to have frequent SVT. Neurology consulted given concern for seizure. Cardiology consulted for concern
for arrhythmia.
Per Neurology, seizure unlikely but remains a possible diagnosis. AED offered to patient but he refuses at this time. He doesn't drive. Cardiology raised concern for arrhythmia given syncope without prodrome and past presyncopal episodes. EP
study offered but patient refused understanding risks. updated as well. They are given warning signs on when he should return to the ER.
Patient reported to [facility] by Neurology office.
Time spent on discharge was 35 minutes.
Important imaging findings :
BRAIN MRI 04/26/24
IMPRESSION:
1. No MRI evidence for acute infarct or intracranial hemorrhage.
2. Mild to moderate bilateral frontal and parietal lobe volume loss.
3. Mild white matter leukoaraiosis in the frontal and parietal lobes.
4. Mild paranasal sinus mucosal disease.
Procedure findings :
Discharge Plan
-
Patient Disposition: Home with Home Care
Discharge Diagnosis/Procedures: syncope; concern for arrhythmia versus possible seizure
Diet: Regular
Activity: As tolerated
Driving Restrictions: No driving
Bathing Restrictions: None
Activity Restrictions/Additional Instructions:
Return to the ER if you have further instances of sudden syncope (passing out).
Referrals:
Emmanuel Ballard MD [Active] - in one month
UNKNOWN - PT NOT,INTERVIEWE [Family Provider] - in less than 1 week
Mendez Fabian MD [Active] -
Additional Discharge Medication Instructions: Form sent to [facility]; No driving given these events and high risk.
Prescriptions:
No Action
No Current Medications
0
Discharge Orders:
Discharge Patient (As Directed); Ordered 04/27/24
Ordered By: Azul Beach
Discharge Date and Time
Discharge Date/Time: 04/27/24 12:18
Print Language: POLISH
== END 2024-04-27 12:18 | disposition home or self-care (01) | DRG 101 ==
LOC: 4 EAST ACU 15:03
PROVIDERS: ADMITTING PHYSICIAN Internal Medicine; ATTENDING PHYSICIAN Student in an Organized Health Care Education/Training Program; CONSULT PHYSICIAN Internal Medicine Cardiovascular Disease; CONSULT PHYSICIAN Psychiatry & Neurology Neurology; EMERGENCY PHYSICIAN Emergency Medicine
DX: R56.9 Unspecified convulsions (principal); I47.10 Supraventricular tachycardia, unspecified; Z68.1 Body mass index [BMI] 19.9 or less, adult; R55 Syncope and collapse; F17.290 Nicotine dependence, other tobacco product, uncomplicated; R63.6 Underweight; R45.1 Restlessness and agitation
CPT/HCPCS: 70450; 70551; 80048; 80053; 80061; 81003; 82607; 82728; 82746; 82962; 83036; 83735; 83880; 84443; 84484; 85025; 85027; 85652; 86140; 86780; 93005; 93306; 95816; 97161; 97166; 99291; 99406

== ENCOUNTER 2025-09-25 23:36 | Observation (INO) | payer MEDICARE, SELFPAY ==
[2025-09-25 18:15] VITALS: BP 129/88
[2025-09-25 18:28] VITALS: BMI 18.4
[2025-09-25 18:42] LABS: Hematocrit 36.1 % (39.0-52.0); Hemoglobin 11.7 g/dL (13.0-18.0); Mean Corp Hgb Conc. 32.4 g/dL (33.0-37.0); Mean Corpuscular Volume 89.4 fL (80.0-94.0); Nucleated Red Blood Cells % 0 % (-); Platelet Count 171 10^3/uL (130-400); Red Cell Dist. Width 14.3 % (11.5-14.5)
[2025-09-25 19:00] VITALS: BP 135/79
[2025-09-25 19:10] LABS: ALT (SGPT) 24 U/L (0-50); AST (SGOT) 26 U/L (17-59); Albumin 3.8 g/dl (3.5-5.0); Alkaline Phosphatase 72 U/L (38-126); Blood Urea Nitrogen 29 mg/dl (9-20); Calcium 9.3 mg/dl (8.4-10.2); Carbon Dioxide 29 mmol/L (22-30); Chloride 101 mmol/L (98-107); Estimated Creatinine Clearance 45 ml/min; Glucose 136 mg/dl (70-99); Potassium 4.4 mmol/L (3.5-5.1); Sodium 138 mmol/L (135-145); Total Protein 7.8 g/dl (6.3-8.2); eGFR > 60.00
--- NOTE | 2025-09-25 22:33 | ED.GENMED ---
History of Present Illness
General
Chief Complaint: Fall
Source: patient
Exam Limitations: none
Time Seen by Provider: 09/25/25 19:05
Nursing documentation reviewed up to this point in time: agreed with
History of Present Illness
History of Present Illness:
Note:
CHIEF COMPLAINT(S)
Syncopal episode and fall
HISTORY OF PRESENT ILLNESS
The patient is an 84-year-old male who experienced a syncopal episode leading to a fall. Prior to the fall, the patient was sitting and consuming a meal with some juice. Following this, he expressed a desire to lie down. The fall occurred after he
stood up, leading to a syncope with rigidity. The patients spouse reported observing blood in his mouth before the fall, potentially from biting due to clenching, as has happened in the past. The patient has a history of similar episodes where he
becomes rigid. Following the fall, he did not immediately recall how he got to the floor but managed to get up unassisted, though it took a considerable amount of time. He complained of feeling like he had low blood pressure and requested juice
before the incident.
The patient also has a history of back pain, which he describes as intermittent in nature, with recent episodes of spasms following an illness suspected to be COVID-19. These spasms have been reported to have improved, yet discomfort persists
occasionally. As reported earlier this evening, the patient has not shown any significant cardiac history or regular follow-up with a gatekeeper beyond hospital evaluations during previous admissions.
ADDITIONAL HISTORY OBTAINED FROM SOURCES OTHER THAN THE PATIENT
The patients spouse witnessed the syncopal event and provided trejo details: prior blood in the patients mouth, rigidity during the event, and the patient�s prior complaint of feeling like he had low blood pressure. She reported that the patient was
non-responsive immediately after the fall, which prompted her to seek emergency assistance.
REVIEW OF SYSTEMS
- Neurological: Episodes of rigidity during syncopal episodes.
- Musculoskeletal: Complaints of intermittent lower back pain and muscle spasms.
PHYSICAL EXAM
General: Alert, no acute distress.
Skin: Warm, dry.
Head: Normocephalic, atraumatic.
Neck: Supple, trachea midline.
Eye Ears, nose, mouth and throat: Oral mucosa moist.
Cardiovascular: Normal peripheral perfusion, No edema.
Respiratory: Respirations are non-labored.
Gastrointestinal: Abdomen nondistended.
Back: Normal range of motion, Normal alignment.
Musculoskeletal: Normal range of motion, normal strength.
Neurological: Alert and oriented to person, place, time, and situation, No focal neurological deficit observed.
Psychiatric: Cooperative, appropriate mood & affect.
PROBLEM LIST
Acute:
- Fall with syncope and rigidity
- Intermittent lower back pain
PLAN
Observation and monitoring for recurrence of syncope. Investigate potential causes of low blood pressure episodes and rigidity. Further evaluation of intermittent lower back pain. Consider cardiology consultation for further cardiac assessment.
DIFFERENTIAL DIAGNOSIS
The Differential Diagnosis includes, in no particular order and is not limited to:
1. Orthostatic hypotension
2. Vasovagal syncope
3. Seizure disorder
4. Cardiac arrhythmia
5. Transient ischemic attack
6. Dehydration
7. Neurological disorder (e.g., Parkinsons disease)
8. Medication side effects
9. Metabolic imbalances (e.g., hypoglycemia)
10. Spinal disc disorder or spinal stenosis
CARE-UPDATE
09/25/25 - 20:19
Updated imaging results indicate no acute pathology in the chest. Notably, the CT scan reveals compression fractures at L1, L2, T6, and L5. Further evaluation for potential causes and appropriate management of the vertebral compression fractures is
warranted.
CARE-UPDATE
09/25/25 - :37
The patient is experiencing disorientation, sluggishness, and a potential altered mental status, potentially influenced by recent administration of Versed. Recent imaging revealed four to five compression fractures in the spine, possibly due to
coughing or a fall, with a history of back spasms following COVID and exercise. The patient has a tendency to fall, associated with episodic low blood pressure, possibly warranting cardiology consultation and consideration of a pacemaker. Immediate
plan involves monitoring mental status overnight, ensuring stability on feet via physical therapy assessment, and addressing hydration concerns with water provision. Decision on discharge to be collaboratively made among patient, family, and medical
team.
Disposition:
SUMMARY OF ENCOUNTER
The patient, an 84-year-old male, presented to the emergency department following an episode of confusion and syncope. Imaging revealed thoracic spine fractures. An ECG showed normal size and rhythm with a rate of [address] abnormalities or chest
pain reported by the patient. The patient is experiencing generalized weakness with a total of four to five compression fractures noted in the spine.
DISPOSITION
Admission to the hospital service for further evaluation and management of weakness and underlying conditions.
ASSESSMENT
The patient experienced a syncopal episode possibly due to orthostatic hypotension, vasovagal response, or a seizure disorder, complicated by thoracic spine fractures and generalized weakness.
PLAN
Admit to hospital service for further evaluation. Monitor for recurrence of syncopal episodes.
INDEPENDENT REVIEW OF LABS AND INTERPRETATION OF TESTS
- My independent ECG interpretation is: normal size, rhythm with a rate of 91, and no ST abnormalities.
RADIOLOGY RESULTS
- My independent interpretation of the CT scan reveals thoracic spine fractures.
MEDICAL DECISION MAKING
- Number and Complexity of Problems Addressed: Chronic conditions affecting care include the patients history of back pain and syncopal episodes. Differential diagnosis includes orthostatic hypotension, vasovagal syncope, seizure disorder, cardiac
arrhythmia, transient ischemic attack, dehydration, neurological disorders, medication side effects, metabolic imbalances, and spinal disorders.
- Data:
- Category 1: Reviewed CT scan indicating thoracic spine fractures and ECG results.
- Category 2: Clinical information obtained from an independent historian (patients spouse).
Past History
Past History
ED Past Medical History: Other (Urinary incontinence); Negative Renal failure (CKD3)
ED Past Surgical History: None
Social History
Tobacco: Former smoker
Alcohol: Occasional
Drug: None
Personal:
Living: with family
Employment: Employed
Family History
Family History: Other (reviewed and non-contributory)
Phy Exam
Physical Exam
Physical Exam:
.
Course
Orders/Labs/Results
Orders:
Orders
09/25/25 18:16
Electrocardiogram (*1) Urgent
Reason for Study: Syncope
09/25/25 18:17
EKG- Treatment ONCE
09/25/25 18:30
CMP [Comprehensive Metabolic Panel] Urgent
Complete Blood Count/With Diff Urgent
09/25/25 19:10
CT Cervical Spine W/o Iv Contr Urgent
Comment:
Reason For Exam: fall, head trauma
CT Facial Bones W/o Iv Contras Urgent
Comment:
Reason For Exam: fall
CT Head W/o Iv Contrast Urgent
Comment:
Reason For Exam: fall
09/25/25 19:20
CT Chest W/o Iv Contrast Urgent
Comment:
Reason For Exam: chest wall pain
09/25/25 22:29
0.9% Sodium Chloride 1000 ml [Nss] 1,000 ml IV BOLUS
Abnormal Lab Results
09/25/25
18:30
RBC 4.04 L 10^6/uL
(4.70-6.10)
Hgb 11.7 L g/dL
(13.0-18.0)
Hct 36.1 L %
(39.0-52.0)
MCHC 32.4 L g/dL
(33.0-37.0)
Abs Immat Gran (auto) 0.1 H 10^3/uL
(0-0.05)
Absolute Lymphs (auto) 0.4 L 10^3/uL
(1.2-3.4)
Immature Gran % 1.1 H %
(0-0.5)
Neutrophils % 87.1 H %
(42.2-75.2)
Lymphocytes % 7.2 L %
(20.5-51.1)
BUN 29 H mg/dl
(9-20)
Glucose 136 H mg/dl
(70-99)
09/25/25 18:30
09/25/25 18:30
Vital Signs
Initial and Last Documented VS:
Initial Vital Signs
Temp Pulse Resp Pulse Ox
98.7 F 97 12 97
09/25/25 18:13 09/25/25 18:13 09/25/25 18:13 09/25/25 18:13
Last Documented Vital Signs
Temp Pulse Resp BP Pulse Ox
98.7 F 78 14 135/79 96
09/25/25 18:13 09/25/25 22:00 09/25/25 22:00 09/25/25 19:00 09/25/25 22:00
*Radiology
Radiology exam reviewed: radiology read reviewed
*Pulse Oximetry
SaO2: 96
Oxygen Mode of Delivery: Room air
Patient hypoxic: no
*Critical Care Note
Total Time (30-74mins, 75-104mins- exclusive of procedures): Not Applicable
ED Attending Note
-
Portions of this chart may have been created with voice recognition software.� Occasional wrong word or��sound alike� substitutions may have occurred due to the inherent limitations of voice recognition software.
Discharge Plan
Departure
Patient Disposition: Admit
Date of Disposition: 09/25/25
Time of Disposition: 22:34
Presentation/result/management discussed w/ accepting MD/DO: Hospitalist
Condition: Fair
Discharge Problem:
Weakness, Syncope, Compression fracture
Prescriptions:
No Action
No Current Medications
0
Referrals:
NONE,* [Family Provider, Internal Medicine]
Interventions
Interventions:
*General Assessment Last Done: 09/25/25 18:20
*Neglect/Abuse Screening Last Done: 09/25/25 18:20
*ED- Fall Risk Assessment Last Done: 09/25/25 18:20
*ED COVID-19 Vaccine History Last Done: 09/25/25 18:20
*ED Influenza Vaccine History Last Done: 09/25/25 18:20
ED- Neurological Assessment Last Done: 09/25/25 18:20
ED-Musculoskeletal Assessment Last Done: 09/25/25 18:33
Discharge Date and Time
Print Language: KOSOVAN
--- NOTE | 2025-09-25 22:40 | HPS.HSE ---
Family Physician
-
Family Physician: * NONE
Chief Complaint
-
Syncopal episode
History of Present Illness
This an 84-year-old male with no significant known medical history presenting to the emergency department via EMS after a fall at home.
Patient reported that he had been in usual state of health up until the evening. According to spouse this is also accurate. Patient reported that and sitting down and comes in the mail with some juice prior to the event. He expressed a desire to
lie down. When he got up he suddenly seized up with rigidity and was not responsive. Spouse reported that she thought that maybe blood in his mouth prior to the fall. Patient ended up falling did strike his face. He did not remember exactly how
he fell. He does recall that it took a while for him to get back up unassisted but he was able to do so. He said he had felt lightheaded and requested some juice prior to that incident.
He had not been having any recent urinary symptoms. He denies any cough fevers or chills. He denies any palpitations. Patient has no prior history of CAD or arrhythmias. He has no prior history of hypertension or orthostatic symptoms. No no
seizure history. He has no prior episode of CVA or TIAs.
He was seen in the emergency department a few months ago for similar episode of unresponsiveness. Patient correctly identified that he was last seen in April for a similar episode which he states is associated with low blood pressures and occasional
skipped beat. However at that admission there is concern for seizure. He had a EEG and MRI which were unrevealing. He was offered AED but patient declined.
Today he was given Versed by EMS due to possible seizure such that when he arrived in the emergency department he was slightly altered however when I talk to him the patient was alert and oriented x 4.
In the emergency department he was afebrile, blood pressure was 135/80 with a pulse of 78 and was satting 96% on room air. ECG shows a normal sinus rhythm with T wave inversions in the anterior leads but otherwise unremarkable. CBC was normal.
Electrolytes BUN/creatinine were in his normal range. U/A unremarkable.
CT of the head shows no acute interval changes. CT of the orbits and facial bones shows no fracture. C-spine also shows no fractures or dislocation. CT of the thoracic cavity shows scoliosis with mild degenerative disease and a severe compression
fracture at L1, compression fractures at L2 T6 and L5.
Medical History
Past Medical History
Past Medical History: Reports None
Past Surgical History: Reports Urological (prostate surgery)
Social History
Tobacco: Former Smoker
Alcohol: Occasional
Drug: None
Personal:
Living: With Family
Employment: Retired
Family History
Family History: Not pertinent
Allergies / Home Medications
Allergies reflects when Allergies were last updated in [facility].
Home Medications with original date entered in [facility]
Allergy/Medication List:
Allergies
Allergy/AdvReac Type Severity Reaction Status Date / Time
No Known Drug Allergies Allergy Unknown Verified 09/25/25 18:17
Home Medications
No Meds [No Current Medications]
Review of Systems
-
History Source: Patient and Family
Constitutional: Reports No Symptoms
EENT: Reports No Symptoms
Respiratory: Reports No Symptoms
Cardiac: Reports No Symptoms
Abdomen/GI: Reports No Symptoms
: Reports No Symptoms
Musculoskeletal: Reports No Symptoms
Skin: Reports No Symptoms
Neurological: Reports No Symptoms
Endocrine: Reports No Symptoms
Hematologic/Lymphatic: Reports No Symptoms
Psych: Reports No Symptoms
Physical Exam
Vital Signs
Vital Signs
Temp Pulse Resp BP Pulse Ox
98.7 F 78 14 135/79 96
09/25/25 18:13 09/25/25 22:00 09/25/25 22:00 09/25/25 19:00 09/25/25 22:34
Physical Exam
General: No Apparent Distress
HEENT: NormoCephalic, Anicteric, Moist mucous membranes, PERRLA and Other (left lateral tongue bruise)
Respiratory: Clear
Cardiac: S1/S2 and Regular Rhythm
Breast: Deferred by me
GI: Soft, Non Tender, Non Distended and Normal Bowel Sounds
Rectal: Deferred by Provider
Genito-urinary: Deferred by me
Musculoskeletal: No Clubbing, No Cyanosis, Edema, Left Lower Extremity (trace ) and Edema, Right Lower Extremity (trace)
Skin: Warm
Neuro: AO x 3, No Motor Deficits, Nonfocal/grossly intact, Cranial Nerves Intact and No Sensory Deficits
Hematologic/Lymphatic: No Lymphadenopathy
Psych: Calm
Laboratory Results
-
09/25/25 18:30
09/25/25 18:30
Laboratory Results
Total Bilirubin 0.4 mg/dl (0.2-1.3) 09/25/25 18:30
AST 26 U/L (17-59) 09/25/25 18:30
ALT 24 U/L (0-50) 09/25/25 18:30
Alkaline Phosphatase 72 U/L (38-126) 09/25/25 18:30
Data Reviewed
-
CT Scan: Report Reviewed by me
Medical Tests (Nuc Med, Echo, EKG etc): Image Personally Visualized and interpreted
Lab Data: Labs Reviewed by me
Old Records: Reviewed
Impression/Plan
-
IMPRESSION:
83 y.o with recurrent syncope/presyncopal episode. Possible seizure but prior w/u was negative and patient declined AED though features seem consistent with seizure at the time. He has no known cardiac history but reports feeling occasional
skipped beats. The presentation today with a possible pre-eplipetic aura then standing 'freezing' and falling with LOC c/w seizure. He had some bruising of the left lateral tongue. No incontinence of the bladder or bowel. Per his report seemed
to have [address] head, labs unremarkable. CT spine with compression fractures that are age indeterminate. Patient not complaining of any pain a this time.
PLAN:
1. Syncope - Possible seizure vs orthostasis.
- admit to telemetry observation
- obtain eeg again in am
- check u/a
- check orthostatics, cycle troponin, check echo
- neurology consultation
- hold off on repeat mri given one done 3 months ago normal.
- no focal deficit and patient has normal MS now A&Ox4 with good insight. Fairly good memory.
- PT consult
DVT PPX - lovenox sq
Code status - Full Code
[2025-09-25] MEDS: NSS 1000 IV (22:46)
[2025-09-25 22:54] LABS: Urine Character Clear (Clear)
[2025-09-25 23:21] LABS: Urine White Cell 0-2 /HPF (0-5)
[2025-09-26] VITALS (9 sets, daily range): BP systolic 119–157; BP diastolic 63–87; PULSE 71–94; O2SAT 97
--- NOTE | 2025-09-26 02:32 | PTCARENOTE ---
Pt arrived to unit approx 0130 to unit. Pt oriented to unit, AAOx3, call duarte in reach, tree puller from stretcher to bed, bed locked, bed in lowest position.
[2025-09-26] MEDS: NSS 1000 IV (04:29)
[2025-09-26 04:44] LABS: Troponin I 0.027 ng/ml
[2025-09-26 09:34] LABS: Hematocrit 33.9 % (39.0-52.0); Hemoglobin 10.8 g/dL (13.0-18.0); Mean Corp Hgb Conc. 31.9 g/dL (33.0-37.0); Mean Corpuscular Volume 91.9 fL (80.0-94.0); Platelet Count 156 10^3/uL (130-400); Red Cell Dist. Width 14.6 % (11.5-14.5)
--- NOTE | 2025-09-26 09:55 | CON.NEURO4 ---
Addendum entered and electronically signed by Sha Lin MD 09/26/25 19:20:
I saw and examined the patient today on 09/26/2025, along with nurse practitioner Gladis Arboleda, and I agree with her assessment and the management plan. Given below is my addendum.
This is an 84-year-old male who has presented to the hospital with report of syncope and fall. Patient has been previously been evaluated by our Neurology service for similar events in the past, he declined initiation of antiseizure medication in
2023. According to the patient's daughter the patient has fallen many times in the past and has had episodes of seizure-like activity which have been noticed by the patient's family. Prior to admission the patient says that he fell and bit his
tongue on the left side and also had loss of consciousness. The patient did not regain consciousness and until he was in the ambulance. In the past also the patient had an episode where he was unable to communicate for about 15 minutes which
appears to be a postictal state.
The patient had an EEG done today that was abnormal due to a captured seizure, emanating from the right hemisphere without clear generalization, which is suggestive of a subclinical seizure emanating from the right frontal lobe.
The MRI of the brain did not show an acute intracranial abnormality.
The MRA of the brain did not show evidence for high-grade stenosis or occlusion of [place].
The MRA of the neck did not show evidence for high-grade stenosis or occlusion.
The plan is to start the patient on Keppra 500 mg twice a day.
The patient will also take seizure precautions including no driving for 6 months. Patient also needs to be reported to [facility] as per law.
I had a detailed discussion with the patient and his daughter regarding the assessment and the management plan.
Original Note:
Consultation - Neurology 4
-
CONSULTING PHYSICIAN: Sha Lin MD
REFERRING PHYSICIAN: Hospitalists/Dr. Lee
DICTATED BY: CHIQUITA Millan
DATE/TIME OF REQUEST: 09/26/25
DATE/TIME OF CONSULTATION: 09/26/25
Reason for Consultation: Fall
History of Present Illness:
This is an 84-year-old male who has presented to the hospital with report of syncope and fall. Patient has been previously evaluated by our Neurology service for similar events in the past, he declined initiation of antiseizure medication in 2023.
From previous evaluation by neurology Dr. Ballard on 04/25/2024:
'Patient himself is unable to provide his own medical history.
Patient reportedly was in his usual state of health until becoming responsive at home after eating breakfast. The patient was described as having irregular respirations and the patient's attempted to revive him by performing CPR. Paramedics,
upon arrival, found the patient to be awake but confused and combative.
Because of the patient becoming less responsive at times although he was combative upon presentation, a stroke alert was initiated. The patient is not known to have additional associated symptoms. There is no known modifying factors at this time.
The patient did not experience either tongue biting or known bowel or bladder incontinence at the time of the incident. Unknown if the patient has had prior episodes which were similar.
IMPRESSIONS/RECOMMENDATIONS:
Abrupt change in speech with reduced speech following what was described by the patient's family as suggested respiratory change and loss of consciousness with upper extremity stiffening.
Differential diagnosis includes convulsive syncope, orthostasis, seizure, anoxic encephalopathy.
EEG is unremarkable.
MRI brain is negative for any acute abnormalities.
Paroxysmal SVT noted on telemetry monitoring.
Plan
-Description of event not entirely supportive of seizure. Patient given the option to start antiseizure medication at this time, he declines. If similar event recurs, would encourage initiating an antiseizure medication.
-Obtain repeat EEG as an outpatient.
-Cardiology evaluation.
-Neurological checks per unit guidelines.
-Follow orthostatic vital signs.
-Goal normotension.
-DVT prophylaxis.
-Patient needs to follow-up with Neurology as an outpatient, may see the [facility] or one of the physicians.'
Yesterday (09/25/25), patient reports that he was in his usual state. He cannot recall the events of the evening. His spouse and daughter report that he was sitting at the kitchen table and reported feeling mildly so he was drinking some apple
juice. He went to stand up to go lie down and his reports that he became rigid, there was blood coming from his mouth which she thought was from teeth clenching, and he fell to the ground striking his face. His told him that he also
vomited. After about 15 minutes the patient was still not back to his baseline, prompting his to call EMS. The patient reports remembering sitting on the ground but then doesn't remember anything until he was in the ambulance. EMS gave him
versed en route to the ER. A laceration was noted on the left side of his tongue. He also reports significant right rib and back pain. CT head was obtained on arrival and is negative for any acute abnormalities. Patient reports feeling back to his
baseline today (09/26/25). He denies any headache, dizziness, vision changes, speech/swallowing difficulty, numbness, and weakness. He does note feeling mildly unsteady on his feet. His daughter at bedside reports that they have noticed any unusual
burping habit intermittently even while he's sleeping. His last event similar to this was 6 months ago.
Past Medical History: Back compression fractures
Surgical History: Prostate surgery.
Family History: Reviewed and noncontributory.
Social History: Former smoker. Occasional alcohol. Denies illicit drug use.
Allergies: No known allergies.
Home Medications: See below.
Review of Symptoms:
Patient denies any fever, headache, chest pain, shortness of breath, GI or symptoms.
�Per the HPI.�All systems are reviewed negative except above.
Physical Exam:
The patient is afebrile, abdomen is nondistended, breathing is unlabored, skin is warm and dry, right lower lip laceration. +Left tongue laceration.
Neurologic Examination:
The patient is awake, alert and oriented x 3. He is able to follow commands and answer questions appropriately. There is no aphasia or dysarthria. On cranial nerve assessment, pupils are 3 mm bilateral, round and reactive to light and
accommodation. Visual linda are full. Extraocular movements are intact. Facial sensations are intact and bilaterally symmetrical, there is no facial asymmetry. Hearing is decreased bilaterally to normal conversation volume. Tongue palate and uvula
are midline. +Left tongue laceration. Sternocleidomastoid strengths are full bilaterally. Motor strengths are 5/5 bilateral upper and lower extremities on medical research [place] scale. There is no drift or involuntary movement noted. Deep tendon
reflexes are 2+ bilateral upper and lower extremities and Babinski is absent bilaterally. There was no extinction noted on double simultaneous stimulation. Coordination is intact by finger to nose bilaterally.
Lab Results: See below.
Neuro Imaging:
1. CT head 09/25/25: No acute intracranial abnormality noted. Mild atrophy. Stable.
Differentials for the patient's presentation include:
1. Recurrent episode of loss of consciousness; etiology is concerning for seizure given prolonged period of altered mental status and tongue bite. Differential diagnosis includes convulsive syncope, orthostasis, anoxic encephalopathy, structural
brain abnormality, large vessel stenosis.
Patient has the following risk factors for their symptoms: Hx similar events
Recommendations:
-Routine EEG pending. Will likely start antiseizure medication after EEG results are obtained.
-MRI brain, MRA head/neck pending.
-Check orthostatic vital signs BID.
-TTE pending.
-PT/OT evaluations.
-DVT prophylaxis.
Discussed patient care with: Dr. Lin, the patient, patient's daughter
Vital Signs and Labs
-
Vital Signs and Labs:
Vital Signs
Temp Pulse Resp BP Pulse Ox
98.2 F 82 18 133/84 98
09/26/25 07:35 09/26/25 07:35 09/26/25 07:35 09/26/25 07:35 09/26/25 07:35
Lab Results
09/26/25 09:27
Sodium 138 mmol/L (135-145) 09/25/25 18:30
Potassium 4.4 mmol/L (3.5-5.1) 09/25/25 18:30
BUN 29 mg/dl (9-20) H 09/25/25 18:30
Glucose 136 mg/dl (70-99) H 09/25/25 18:30
Calcium 9.3 mg/dl (8.4-10.2) 09/25/25 18:30
Medications
-
Active Medications
Generic Name Dose Route Start Last Admin
Trade Name Freq PRN Reason Stop Dose Admin
Acetaminophen 650 mg 09/26/25 02:36
Acetaminophen 325 Mg Tablet PO 10/24/25 02:35
Q4HPRN PRN
mild pain/RICHARD/temp> 100.4F
Bisacodyl 10 mg 09/26/25 02:36
Bisacodyl 10 Mg Rectal Suppository RECTAL 10/24/25 02:35
[id number] PRN
constipation
Enoxaparin Sodium 40 mg 09/26/25 18:00
Enoxaparin Sodium 40 Mg/0.4 Ml Syringe SC 10/24/25 17:59
QPM DIXON
Ondansetron HCl 4 mg 09/26/25 02:36
Ondansetron 4 Mg/2 Ml Vial IV 10/24/25 02:35
Q6HPRN PRN
nausea and vomiting
Polyethylene Glycol 17 grams 09/26/25 02:36
Polyethylene Glycol Powder 17 Grams Packet PO 10/24/25 02:35
DAILYPRN PRN
constipation
Senna/Docusate Sodium 1 tablet 09/26/25 02:36
Docusate W/Senna ([place]-Colace) Tablet PO 10/24/25 02:35
BIDPRN PRN
constipation
Sodium Chloride 0 flush 09/26/25 03:00
Sodium Chloride 0.9% (Flush) Syringe IV 10/24/25 02:59
PER PROTOCOL DIXON
Home Medications
�Medication �Instructions �Recorded
No Meds [No Current Medications] 04/25/24
NIH Stroke Score
Subsequent NIH Scale
Date of Subsequent NIH Scale: 09/26/25
Time of Subsequent NIH Scale: 10:00
NIH Stroke Score
Level of Consciousness: 0 - Alert
LOC Questions: 0-Answers both correctly
LOC Commands: 0-Performs both correctly
Best Horizontal Gaze: 0-Normal
Visual Linda: 0=Normal, no visual loss
Facial Palsy: 0=Normal, symmetrical
Motor - Right Arm: 0=No drift 10 seconds
Motor - Left Arm: 0=No drift 10 seconds
Motor - Right Le-No drift 5 seconds
Motor - Left Le-No drift 5 seconds
Limb Ataxia: 0-Absent
Sensation: 0-Normal
Best Language: 0-No aphasia
Dysarthria: 0-Normal
Extinction and Inattention: 0-No abnormality
NIH Total Score:: 0
Modified [place] (mRS) Score
Modified [place] Scale (mRS): No significant disability. Able to carry out usual activities.
Score: 1
--- NOTE | 2025-09-26 09:57 | W.PN.HOSP.TC ---
Today's Communication/Plan
-
f/w neurology recommendations
Assessment / Plan
Assessment / Plan
Physical Exam
General: No Apparent Distress
HEENT: Normocephalic, Anicteric, Moist mucous membranes, PERRLA and Other (lower lip wound )
Respiratory: Clear
Cardiac: S1/S2 and Regular Rhythm
GI: Soft, Non Tender, Non Distended and Normal Bowel Sounds
Genito-urinary: No hanson
Musculoskeletal: No Clubbing, No Cyanosis, Edema, Left Lower Extremity (trace ) and Edema, Right Lower Extremity (trace)
Skin: Warm
Neuro: AO x 3, No Motor Deficits, Nonfocal/grossly intact, Cranial Nerves Intact and No Sensory Deficits
Hematologic/Lymphatic: No Lymphadenopathy
Psych: Calm
83 y.o with recurrent syncope/presyncopal episode. Possible seizure but prior w/u was negative and patient declined AED though features seem consistent with seizure at the time. He has no known cardiac history but reports feeling occasional
skipped beats. The presentation today with a possible pre-eplipetic aura then standing 'freezing' and falling with LOC c/w seizure. He had some bruising of the left lateral tongue. No incontinence of the bladder or bowel. Per his report seemed
to have [address] head, labs unremarkable. CT spine with compression fractures that are age indeterminate. Patient not complaining of any pain a this time.
PLAN:
1. Syncope - Possible seizure vs orthostasis.
- admit to telemetry observation
- obtain eeg again in am
- negative urine for active infection, afebrile
CT head no acute findings
negative ortho signs , negative troponin X2 , check echo
- neurology consultation
- no focal deficit and patient has normal MS now A&Ox4 with good insight. Fairly good memory.
- PT consulted
# CT showed: Multiple fractures of the thoracic and lumbar spine as described above. New from previous exam for age indeterminate.
No skin bruising noted. Tylenol for pain
# CT showed 4.7 cm right renal cyst. New. For OP follow up
DVT PPX - lovenox sq
Code status - Full Code
Total time spent to see the patient, examine the patient, review data and lab results, discuss treatment plan with patient, nursing staff around 55 minutes
Anticipated Discharge: 24 - 48 hours
Subjective/Interval History
-
Date of Service: September 26, 2025
He feels back to normal
No headache
No chest pain or sob
Objective Data
-
Labs:
Laboratory Results
09/26/25
09:27
WBC 5.0
Hgb 10.8 L
Hct 33.9 L
Plt Count 156
Sodium Pending
Potassium Pending
Chloride Pending
Carbon Dioxide Pending
BUN Pending
Creatinine Pending
Glucose Pending
Calcium Pending
Vital Signs:
Vital Signs
Temp Pulse Resp BP Pulse Ox
98.2 F 82 18 133/84 98
09/26/25 07:35 09/26/25 07:35 09/26/25 07:35 09/26/25 07:35 09/26/25 07:35
I&O
09/25/25 09/26/25 09/27/25
06:59 06:59 06:59
Output Total 500 / 500
Balance -500 / -500
[2025-09-26 09:58] LABS: Troponin I 0.027 ng/ml
[2025-09-26 10:03] LABS: Blood Urea Nitrogen 21 mg/dl (9-20); Calcium 9.0 mg/dl (8.4-10.2); Estimated Creatinine Clearance 50 ml/min; Glucose 153 mg/dl (70-99); Magnesium 1.8 mg/dl (1.6-2.3); Potassium 4.2 mmol/L (3.5-5.1); Sodium 136 mmol/L (135-145); eGFR > 60.00
[2025-09-26 10:49] LABS: Carbon Dioxide 24 mmol/L (22-30); Chloride 104 mmol/L (98-107)
--- NOTE | 2025-09-26 13:34 | EEG.RPT ---
Electroencephalogram Report
Recording
Date of EE09/26/25
Type of EEG: Routine
Length of EEG recordin minutes
Done with Video Recording: Yes
Patient Status: Inpatient
Recording Conditions: Awake and Drowsy
Hyperventilation Performed: No
Photic Stimulation Performed: Yes
Report
LESS THAN 1 HOUR REPORT
LESS THAN 1 HOUR EEG INTERPRETATION:
Severely abnormal EEG for age due to a captured seizure, emanating from the right hemisphere without clear generalization.
CLINICAL CORRELATION:
This study is suggestive of a subclinical seizure emanating from the right frontal lobe. Clinical correlation is advised.
METHODS:
A 21 channel digitized electroencephalogram (EEG) was performed in the [facility]. The 10/20 international system of electrode placement was used with ECG and lateral/vertical eye movements recorded. Video was recorded.
ELECTROENCEPHALOGRAPHER IMPRESSION(S):
Quality of study
Good
Background
There was an unremarkable anterior-posterior voltage gradient.
With eye opening the background activity changed to a low voltage mixture of frequencies.
There were no significant asymmetries of background activity noted.
Sleep
Drowsiness present
Hyperventilation
Not performed
Photic Stimulation
Failed to activate the record
EKG
Normal sinus rhythm
Abnormal activity
Starting on page 77 was a crescendo-decrescendo low-medium amplitude rhythmic [id number] (F8) theta-frequency slowing lasting for 42 seconds
--- NOTE | 2025-09-26 14:22 | EEG.RPT ---
Electroencephalogram Report
Recording
EEG Number: [id number]
Date of EE09/26/25
Type of EEG: Routine
Length of EEG recordin min
Done with Video Recording: Yes
Patient Status: Inpatient
Recording Conditions: Awake
Hyperventilation Performed: No
Photic Stimulation Performed: Yes
Hand Dominance: Right
Report
This routine EEG was done on 09/26/2025.
The posterior dominant rhythm is about 9 Hz.
There is no asymmetry of the frequency of the amplitude seen in between the hemispheres.
--- NOTE | 2025-09-26 15:44 | CM ---
CM reviewed chart, patient off floor for testing, daughter bedside, initial assessment completed by daughter.
Patient resides with his in a two story home, about five steps to enter.
Patient is independent at home, no device used.
Daughter assists with shopping, running errands, lives 5 minutes away.
Patient does not have a PCP, [facility].
QUINN form verbally reviewed, provided with copy, placed in chart.
CM discussed therapy recommendation of SNF- patient currently not covered by insurance, would be considered private pay. Daughter reports patient would not be able to private pay.
CM discussed option for home therapy if unable to pay for SNF.
CM placed call to [facility], patient not eligible for [facility] waiver.
CM will continue to follow for all d/c planning.
Plan; home with therapy likely, unable to private pay for SNF
[2025-09-26] MEDS: KEPPRA PO ×2 (15:54→21:42)
[2025-09-26 18:02] LABS: Troponin I 0.020 ng/ml
[2025-09-27 00:03] VITALS: BP 144/80
[2025-09-27 05:09] VITALS: BP 136/79
[2025-09-27] MEDS: KEPPRA PO (07:52)
[2025-09-27 08:12] VITALS: BP 118/78; BP 128/81; BP 139/81; PULSE 73; PULSE 83; PULSE 92
[2025-09-27] MEDS: KEPPRA 500 MG PO (09:28)
--- NOTE | 2025-09-27 10:01 | W.PN.HOSP.TC ---
Today's Communication/Plan
-
dc
Assessment / Plan
Assessment / Plan
Physical Exam
General: No Apparent Distress
HEENT: Normocephalic, Anicteric, Moist mucous membranes, PERRLA and Other (lower lip wound )
Respiratory: Clear
Cardiac: S1/S2 and Regular Rhythm
GI: Soft, Non Tender, Non Distended and Normal Bowel Sounds
Genito-urinary: No hanson
Musculoskeletal: No Clubbing, No Cyanosis, Edema, Left Lower Extremity (trace ) and Edema, Right Lower Extremity (trace)
Skin: Warm
Neuro: AO x 3, No Motor Deficits, Nonfocal/grossly intact, Cranial Nerves Intact and No Sensory Deficits
Hematologic/Lymphatic: No Lymphadenopathy
Psych: Calm
83 y.o with recurrent syncope/presyncopal episode. Possible seizure but prior w/u was negative and patient declined AED though features seem consistent with seizure at the time. He has no known cardiac history but reports feeling occasional
skipped beats. The presentation today with a possible pre-eplipetic aura then standing 'freezing' and falling with LOC c/w seizure. He had some bruising of the left lateral tongue. No incontinence of the bladder or bowel. Per his report seemed
to have [address] head, labs unremarkable. CT spine with compression fractures that are age indeterminate. Patient not complaining of any pain a this time.
PLAN:
1. Syncope - c/w seizure
EEG 09/26 showed subclinical seizure emanating from the right frontal lobe.
Started on oral Keppra. Patient refused to take it. Further counseling this morning, he agreed to take it. Also patient requested neurologist to see the patient again to discuss Keppra treatment.
- negative urine for active infection, afebrile
CT head no acute findings
negative ortho signs , negative troponin X2 , check echo
- neurology consultation
- no focal deficit and patient has normal MS now A&Ox4 with good insight. Fairly good memory.
- PT consulted
# CT showed: Multiple fractures of the thoracic and lumbar spine as described above. New from previous exam for age indeterminate.
No skin bruising noted. Tylenol for pain
# CT showed 4.7 cm right renal cyst. New. For OP follow up
DVT PPX - lovenox sq
Code status - Full Code
Total discharge time spent to see the patient, examine the patient, review data and lab results, discuss discharge/treatment plan with patient, daughter, neurology nursing staff around 65 minutes
Anticipated Discharge: Today
Subjective/Interval History
-
Date of Service: September 27, 2025
No chest pain
No sob
No headache
Objective Data
-
Vital Signs:
Vital Signs
Temp Pulse Resp BP Pulse Ox
97.6 F 73 16 128/81 98
09/27/25 08:12 09/27/25 08:12 09/27/25 08:12 09/27/25 08:12 09/27/25 08:12
I&O
09/26/25 09/27/25 09/28/25
06:59 06:59 06:59
Intake Total 860 / 860
Output Total 500 / 500 800 / 800
Balance -500 / -500 60 / 60
--- NOTE | 2025-09-27 10:08 | W.PN.NEURO.1 ---
Addendum entered and electronically signed by Sha Lin MD 09/27/25 20:03:
I have seen and examined the patient today along with the nurse practitioner Gladis Arboleda and I agree with Gladis Arboleda's assessment and the management plan.
This is an 84-year-old male who has presented to the hospital with report of syncope and fall. Patient has been previously been evaluated by our Neurology service for similar events in the past, he declined initiation of antiseizure medication in
2023. According to the patient's daughter the patient has fallen many times in the past and has had episodes of seizure-like activity which have been noticed by the patient's family. Prior to admission the patient says that he fell and bit his
tongue on the left side and also had loss of consciousness. The patient did not regain consciousness until he was in the ambulance. In the past also the patient had an episode where he was unable to communicate for about 15 minutes which appears
to be a postictal state.
The patient had an EEG was abnormal due to a captured seizure, emanating from the right hemisphere without clear generalization, which is suggestive of a subclinical seizure emanating from the right frontal lobe.
The MRI of the brain did not show an acute intracranial abnormality.
The MRA of the brain did not show evidence for high-grade stenosis or occlusion of [place].
The MRA of the neck did not show evidence for high-grade stenosis or occlusion.
The plan is to keep the patient on Keppra 500 mg twice a day.
The patient will also take seizure precautions including no driving for 6 months. Patient also needs to be reported to [facility] as per law.
I had a detailed discussion with the patient and his daughter regarding the assessment and the management plan. The patient and his daughter agreed that the patient should take Keppra.
Follow-up with Neurology as an outpatient
Original Note:
Today's Communication / Plan
-
.
Neuro Assessment/Plan
Assessment
This is an 84-year-old male who has presented to the hospital with report of syncope and fall. Patient has been previously been evaluated by our Neurology service for similar events in the past, he declined initiation of antiseizure medication in
2023. According to the patient's daughter the patient has fallen many times in the past and has had episodes of seizure-like activity which have been noticed by the patient's family. Prior to admission the patient says that he fell and bit his
tongue on the left side and also had loss of consciousness. The patient did not regain consciousness and until he was in the ambulance. In the past also the patient had an episode where he was unable to communicate for about 15 minutes which
appears to be a postictal state
EEG 09/26/25 was abnormal due to a captured seizure, emanating from the right hemisphere without clear generalization, which is suggestive of a subclinical seizure emanating from the right frontal lobe.
The MRI of the brain did not show an acute intracranial abnormality.
The MRA of the brain did not show evidence for high-grade stenosis or occlusion of [place].
The MRA of the neck did not show evidence for high-grade stenosis or occlusion.
Plan
-Discussed initiation of Keppra 500mg twice a day with the patient and his daughter, he is currently agreeable to giving it a try.
-Patient does not drive at baseline, this event was reported to [facility] per [facility] law.
-Follow-up with Neurology as an outpatient.
Subjective/Objective
Subjective Data
Date of Service: September 27, 2025
No acute events overnight. Patient denies any further episodes.
Objective Data
Vital Signs
Temp Pulse Resp BP Pulse Ox
97.6 F 73 16 128/81 98
09/27/25 08:12 09/27/25 08:12 09/27/25 08:12 09/27/25 08:12 09/27/25 08:12
Lab Results
09/26/25 09:27
09/26/25 09:27
Sodium 136 mmol/L (135-145) 09/26/25 09:27
Potassium 4.2 mmol/L (3.5-5.1) 09/26/25 09:27
BUN 21 mg/dl (9-20) H 09/26/25 09:27
Glucose 153 mg/dl (70-99) H 09/26/25 09:27
Calcium 9.0 mg/dl (8.4-10.2) 09/26/25 09:27
Patient Allergies
No Known Drug Allergies Allergy (Verified 09/25/25 18:17)
Unknown
Physical Exam
-
General: No Apparent Distress
HEENT: Normocephalic and Atraumatic
Neck: Full Range of Motion
GI: Non-distended
Extremities: No Clubbing, No Cyanosis and No Edema
Extended Neurological Exam
Mood & Affect: Mood Unremarkable and Affect Unremarkable
Attention Span & Concentration: Awake, Alert and Interactive
Memory: Unremarkable and Able to Recall
Tremor: Hand Tremor Absent and Head Tremor Absent
Involuntary Movement: None
Speech: Quality Unremarkable, Quantity Unremarkable and Rate of Production Unremarkable
Cranial Nerves III, IV, : Extraocular Movement: Extraocular Movement Full in all Directions
Cranial Nerve VII: Facial Symmetry: Normal Facial Symmetry
Cranial Nerve VIII: Hearing: Grossly Reduced
Muscle Strength, Overall: Full Throughout
Data Reviewed
-
EEG: Report Reviewed
Labs: Report Reviewed
Reviewed with: Physician, Patient and Family
Medications
-
Active Medications
Generic Name Dose Route Start Last Admin
Trade Name Freq PRN Reason Stop Dose Admin
Acetaminophen 650 mg 09/26/25 02:36
Acetaminophen 325 Mg Tablet PO 10/24/25 02:35
Q4HPRN PRN
mild pain/RICHARD/temp> 100.4F
Bisacodyl 10 mg 09/26/25 02:36
Bisacodyl 10 Mg Rectal Suppository RECTAL 10/24/25 02:35
[id number] PRN
constipation
Enoxaparin Sodium 40 mg 09/26/25 18:00 09/26/25 17:14
Enoxaparin Sodium 40 Mg/0.4 Ml Syringe SC 10/24/25 17:59 Not Given
QPM DIXON
Levetiracetam 500 mg 09/27/25 20:00
Levetiracetam 500 Mg Regular Release Tablet PO 10/25/25 19:59
BID DIXON
Ondansetron HCl 4 mg 09/26/25 02:36
Ondansetron 4 Mg/2 Ml Vial IV 10/24/25 02:35
Q6HPRN PRN
nausea and vomiting
Polyethylene Glycol 17 grams 09/26/25 02:36
Polyethylene Glycol Powder 17 Grams Packet PO 10/24/25 02:35
DAILYPRN PRN
constipation
Senna/Docusate Sodium 1 tablet 09/26/25 02:36
Docusate W/Senna (Bibiana-Colace) Tablet PO 10/24/25 02:35
BIDPRN PRN
constipation
Sodium Chloride 0 flush 09/26/25 03:00
Sodium Chloride 0.9% (Flush) Syringe IV 10/24/25 02:59
PER PROTOCOL DIXON
Home Medications
�Medication �Instructions �Recorded
No Meds [No Current Medications] 04/25/24
[2025-09-27 11:30] VITALS: BP 94/49
[2025-09-27 12:43] VITALS: BP 114/67
--- NOTE | 2025-09-27 14:30 | CM ---
CM reviewed chart, patient see with daughter, for d/c today.
CM discussed referral to home therapy, patient agreeable, referral placed to [facility]. Patient reports he is very physically active and works out regularly.
Daughter Renetta involved in patients care, will transport home.
CM will continue to follow for all d/c needs.
Plan; home with referral to [facility]
--- NOTE | 2025-09-28 14:41 | W.DCSUMMARY ---
Discharge Summary
Discharge Data
Date of Admission: 09/25/25
Date of Discharge: 09/27/25
-
Pending Results: No
Hospital Course
84 years old male presented with syncopal episodes associated with seizure-like activity. Patient did not have fever. His vital signs were stable. He was seen in the emergency department a few months ago for similar episode of unresponsiveness.
He had a EEG and MRI which were unrevealing. He was offered AED but patient declined. Patient was evaluated by neurologist. He did not have orthostatic hypotension. EEG showed seizure activity. MRI study did not show acute sheetrock or
findings. Neurologist recommended Keppra. Patient was counseled regarding taking his medications. He agreed to try it. Patient and his daughter agreed to the treatment. Patient was evaluated by physical therapy and recommendation to do skilled
nursing facility placement. Patient declined and he was sent home with home care services. Patient was given instruction not to drive but he reported he was not driving a car anymore. Patient was discharged home in a stable condition.
Discharge Plan
-
Patient Disposition: Home with Home Care
Discharge Diagnosis/Procedures: - Syncope : You were seen by neurologist. EEG showed seizure activity. You were started on a new antiseizure medication called Keppra.
- CT of chest showed: Multiple fractures of the thoracic and lumbar spine. New from previous exam for age indeterminate. Also CT showed 4.7 cm right renal cyst. New. For OP follow up
Diet: As tolerated
Driving Restrictions: No driving
Referrals:
Sha Lin MD [Active, Neurology] - in one month
NONE,* [Family Provider, Internal Medicine]
Prescriptions:
New
levetiracetam 500 mg Tablet
500 mg PO BID Qty: 60 0RF
No Action
No Current Medications
0
Discharge Orders:
Discharge Patient (As Directed); Ordered 09/27/25
Ordered By: Florencio Bee
Discharge Date and Time
Discharge Date/Time: 09/27/25 16:09
Print Language: PERSIAN
== END 2025-09-27 16:09 | disposition home health service (06) ==
LOC: 4 WEST ACU 23:36
PROVIDERS: ADMITTING PHYSICIAN Internal Medicine; ATTENDING PHYSICIAN Internal Medicine; EMERGENCY PHYSICIAN Student in an Organized Health Care Education/Training Program; OTHER PHYSICIAN Psychiatry & Neurology Neurology
DX: R55 Syncope and collapse (principal); R56.9 Unspecified convulsions; S01.552A Open bite of oral cavity, initial encounter; M48.56XA Collapsed vertebra, not elsewhere classified, lumbar region, initial encounter for fracture; M48.54XA Collapsed vertebra, not elsewhere classified, thoracic region, initial encounter for fracture; W19.XXXA Unspecified fall, initial encounter; Y93.89 Activity, other specified; Y92.009 Unspecified place in unspecified non-institutional (private) residence as the place of occurrence of the external cause; R41.82 Altered mental status, unspecified; R53.1 Weakness; R07.89 Other chest pain; R26.81 Unsteadiness on feet; R94.31 Abnormal electrocardiogram [ECG] [EKG]; M41.84 Other forms of scoliosis, thoracic region; G31.9 Degenerative disease of nervous system, unspecified; J32.0 Chronic maxillary sinusitis; N28.1 Cyst of kidney, acquired; R29.6 Repeated falls; Z87.891 Personal history of nicotine dependence
CPT/HCPCS: 70450; 70486; 70544; 70548; 70553; 71250; 72125; 80048; 80053; 81003; 81015; 83735; 84484; 85025; 85027; 93005; 93306; 95816; 96360; 97163; 97166; 97530; 99285; A9585; G0378